=== PATIENT | female | born 1965 | race American Indian/Alaskan Native ===

== ENCOUNTER 2021-08-12 16:46 | Emergency (ER) | payer SELFPAY ==
--- NOTE | 2021-08-12 18:05 | XRay Report ---
RIGHT ANKLE 3 VIEW(S) INDICATION / CLINICAL INFORMATION: PAIN AND SWELLING COMPARISON: None available. FINDINGS: BONES / JOINT(S): No acute fracture or subluxation. No significant arthritis. There is widening of th e medial tibiotalar joint. SOFT TISSUES: There is marked soft tissue swelling of the ankle. ADDITIONAL FINDINGS: None. IMPRESSION: 1. Widening of the medial tibiotalar joint with marked soft tissue swelling throughout the ankle sugg esting ligamentous injury. Signer Name: Eleazar Durant DO Signed: 08/12/2021 6:00 PM Workstation Name: [email or web address]
[2021-08-12 20:07] VITALS: BP 126/80
--- NOTE | 2021-08-12 20:45 | Emergency Department Report ---
ED Lower Extremity HPI - General Chief Complaint: Extremity Injury, Lower Stated Complaint: FELL Time Seen by Provider: 08/12/21 20:34 Source: patient Mode of arrival: Wheelchair Limitations: No Limitations - History of Present Illness Initial Comments: 56-year-old female presents to the ER today with complaints of left ankle injury. Patient states that it occurred this afternoon. She states that she was walking when she stepped down from the curb wrong and twisted her right ankle. She reports swelling and pain since the injury. She did take some ibuprofen earlier prior to coming in. She denies any open wound, bruising or erythema. She denies any prior injury to her ankle in the past. Complaint: ankle injury -: This afternoon - Related Data Previous Rx's Medication Instructions Recorded Last Taken Type HYDROcodone/APAP 5-325 [[place] 1 each PO Q4HR PRN #12 tablet 08/12/21 Unknown Rx 5/325] Ibuprofen [Motrin] 600 mg PO Q8H PRN #30 tablet 08/12/21 Unknown Rx Allergies Allergy/AdvReac Type Severity Reaction Status Date / Time No Known Allergies Allergy Unverified 08/12/21 17:34 ED Review of Systems ROS: Stated complaint: FELL Other details as noted in HPI Comment: All other systems reviewed and negative Musculoskeletal: joint swelling, arthralgia Neurological: abnormal gait ED Past Medical Hx - Past Medical History Previous Medical History?: No - Surgical History Past Surgical History?: Yes Additional Surgical History: HYSTO - Medications Home Medications: Home Medications Medication Instructions Recorded Confirmed Last Taken Type HYDROcodone/APAP 5-325 [[place] 1 each PO Q4HR PRN #12 tablet 08/12/21 Unknown Rx 5/325] Ibuprofen [Motrin] 600 mg PO Q8H PRN #30 tablet 08/12/21 Unknown Rx ED Physical Exam - General Limitations: No Limitations General appearance: alert, in no apparent distress - Head Head exam: Present: atraumatic, normocephalic, normal inspection - Eye Eye exam: Present: normal appearance, PERRL, EOMI Pupils: Present: normal accommodation - Neck Neck exam: Present: normal inspection, full ROM - Respiratory Respiratory exam: Present: normal lung sounds bilaterally. Absent: respiratory distress, wheezes, rales, rhonchi, stridor - Cardiovascular Cardiovascular Exam: Present: regular rate, normal rhythm, normal heart sounds - Expanded Lower Extremity Exam Right Ankle exam: Present: tenderness (medial and lateral malleolus ), swelling. Absent: full ROM, abrasion, laceration, ecchymosis, deformity, crepidus, dislocation, erythema, anterior draw sign Neuro vascular tendon exam: Present: no vascular compromise. Absent: pulse deficit, abnormal cap refill, motor deficit, sensory deficit, tendon deficit Gait: Positive: not tested/not observed (due to pain ) - Neurological Exam Neurological exam: Present: alert, oriented X3, CN II-XII intact, abnormal gait - Psychiatric Psychiatric exam: Present: normal affect, normal mood ED Course Vital Signs 08/12/21 08/12/21 17:39 20:03 Temperature 99 F 99.0 F Pulse Rate 84 93 H Respiratory 22 18 Rate Blood Pressure 174/119 126/80 [Right] O2 Sat by Pulse 100 100 Oximetry ED Lower Extremity MDM - Radiology Data Radiology results: report reviewed Patient: DARIAN GALVAN MR#: [id number] [birth year] : 1965 Acct:[id number] Age/Sex: 56 / F ADM Date: 08/12/21 Loc: ED Attending Dr: Ordering Physician: ED MD KAYE Date of Service: 08/12/21 Procedure(s): XR ankle 3+V RT Accession Number(s): [id number] cc: ED MD KAYE Fluoro Time In Minutes: RIGHT ANKLE 3 VIEW(S) INDICATION / CLINICAL INFORMATION: PAIN AND SWELLING COMPARISON: None available. FINDINGS: BONES / JOINT(S): No acute fracture or subluxation. No significant arthritis. There is widening of the medial tibiotalar joint. SOFT TISSUES: There is marked soft tissue swelling of the ankle. ADDITIONAL FINDINGS: None. IMPRESSION: 1. Widening of the medial tibiotalar joint with marked soft tissue swelling throughout the ankle suggesting ligamentous injury. Signer Name: Eleazar Durant DO Signed: 08/12/2021 6:00 PM Workstation Name: [id number] Transcribed By: IRIS Dictated By: ELEAZAR DURANT DO Electronically Authenticated By: ELEAZAR DURANT DO Signed Date/Time: 08/12/21 1800 DD/ 58 TD/TT: - Medical Decision Making 2106: Reviewed xray results which showed Widening of the medial tibiotalar joint with marked soft tissue swelling throughout the ankle suggesting ligamentous injury. Discussed xray results with patient. Given xray results patient placed in short posterior splint and crutches. She will be given referral info to ortho and rx for pain. She expressed understanding of instructions and agreed with plan. Patient was stable at time of d/c. Critical care attestation.: If time is entered above; I have spent that time in minutes in the direct care of this critically ill patient, excluding procedure time. ED Disposition Clinical Impression: Ankle sprain Disposition: 01 HOME / SELF CARE / HOMELESS Is pt being admited?: No Does the pt Need Aspirin: No Condition: Stable Instructions: How to Use Cold Therapy, [id number], Ankle Sprain, [id number] Additional Instructions: I recommend that you elevate your leg as often as possible. Use the crutches to help ambulate. I recommend that you follow-up with hearing specialist in 1 week and keep the splint on and try not to get it wet until follow-up. If you do not have an hearing specialist 1 will be provided for you on discharge. Take the pain medication as prescribed. Return to the ER if your symptoms changes or worsens in any way. Prescriptions: Ibuprofen [Motrin] 600 mg PO Q8H PRN #30 tablet PRN Reason: Pain HYDROcodone/APAP 5-325 [[place] 5/325] 1 each PO Q4HR PRN #12 tablet PRN Reason: Pain Referrals: BEAN BERNAL MD [Staff Physician] - 3-5 Days Forms: Work/School Release Form(ED) Time of Disposition: 21:01
[2021-08-12] MEDS ORDERED: HYDROcodone/ACETAMINOPHEN 5-325 MG TAB PO ONE (20:59)
== END 2021-08-12 23:15 | disposition home or self-care (01) ==
LOC: ED 16:46
DX: S93.401A Sprain of unspecified ligament of right ankle, initial encounter (principal); W10.1XXA Fall (on)(from) sidewalk curb, initial encounter; Y93.89 Activity, other specified; Y92.89 Other specified places as the place of occurrence of the external cause; Y99.8 Other external cause status
CPT/HCPCS: 99283; 99284